=== PATIENT | male | born 1955 | race Two or more races ===

== ENCOUNTER 2019-11-18 06:09 | Inpatient (IN) | payer BC, OTHER ==
[~2019-11-18] VITALS: Ht 182.9 cm; Wt 63.5 kg
--- NOTE | 2019-11-18 06:26 | NUR ---
PT CAME TO ER BED BIB RA 12 C/O FEELING NAUSEOUS. PT STATES HE HAS BEEN HAVING TREMORS AND NAUSEA FOR ABOUT A WEEK. PT STATES THAT HIS LAST DRINK WAS YESTERDAY. PT STATES HE IS TRYING TO STAY SOBER. AAOX3, UNABLE TO VERIFY THE CURRENT MONTH AND YEAR. BREATHING EVENLY AND UNLABORED. CONNECTED TO MONITOR.
[2019-11-18] MEDS ORDERED: LORAZEPAM INJ 2 MG/ML VIAL IVP ONE (06:30)
[2019-11-18] MEDS ORDERED: LORAZEPAM INJ 2 MG/ML VIAL ONE ×2 (06:30→07:50)
--- NOTE | 2019-11-18 06:47 | NUR ---
PT WAS PICKED UP FOR
[2019-11-18 06:48] LABS: BASOPHILS # (AUTO) 0.2 /CMM (0.0-0.2); BASOPHILS % (AUTO) 1.6 % (0.0-2.0); EOSINOPHILS % (AUTO) 0.1 % (0.0-6.0); HEMATOCRIT 41 % (39-51); HEMOGLOBIN 13.7 g/dL (13.5-17.5); LYMPHOCYTES # (AUTO) 0.4 /CMM (0.8-4.8); MEAN CORPUSCULAR HGB CONC 33 g/dl (31.0-36.0); MEAN CORPUSCULAR VOLUME 106 fL (80-96); MONOCYTES # (AUTO) 0.7 /CMM (0.1-1.30); MONOCYTES % (AUTO) 4.7 % (2.0-12.0); NEUTROPHILS # (AUTO) 12.8 /CMM (1.8-8.9); NEUTROPHILS % (AUTO) 90.6 % (43.0-81.0); PLATELET COUNT (AUTO) 132 /CMM (150-450); RED BLOOD CELL COUNT(AUTO) 3.88 MIL/uL (4.5-6.0); WHITE BLOOD COUNT (AUTO) 14.1 K/uL (4.3-11.0)
[2019-11-18 07:06] LABS: CALCIUM, SERUM 9.6 mg/dL (8.5-10.1); CARBON DIOXIDE 18 mmol/L (21-32); CHLORIDE 95 mmol/L (98-107); CREATININE 2.1 mg/dL (0.6-1.3); GLUCOSE 107 mg/dL (74-106); POTASSIUM 3.4 mmol/L (3.5-5.1); SODIUM SERUM 144 mmol/L (136-145); UREA NITROGEN, BLOOD 12 mg/dL (7-18)
[2019-11-18 07:10] LABS: ALBUMIN 3.9 g/dL (3.4-5.0); ALKALINE PHOSPHATASE 95 U/L (46-116); BILIRUBIN,DIRECT 0.8 mg/dL (0.0-0.2); BILIRUBIN,TOTAL 2.5 mg/dL (0.2-1.0); TOTAL PROTEIN, SERUM 7.6 g/dL (6.4-8.2)
[2019-11-18 07:14] LABS: ACETAMINOPHEN 0 ug/ml (10-30); ALCOHOL, BLOOD < 3 mg/dL (0-0); SALICYLATE < 0.2 mg/dL (2.8-20.0)
--- NOTE | 2019-11-18 07:26 | NUR ---
ASSESSED PT ON BED AWAKE AA0X4, NOT IN RESPIRATORY DISTRESS, V/S STABLE, KEPT RESTED AND COMFORTABLE, AWAITING URINE SPECIMEN, WILL CONTINUE TO MONITOR.
[2019-11-18 07:29] LABS: ALANINE AMINOTRANSFERASE 57 U/L (12-78); ASPARTATE AMINOTRANSFERASE 122 U/L (15-37)
[2019-11-18] MEDS ORDERED: IV NS 0.9% 1,000 ML BAG IV ONE (07:30)
[2019-11-18] MEDS ORDERED: Thiamine 100 MG in IV D5W 50 ML IV SCH (07:30)
[2019-11-18 07:41] LABS: MAGNESIUM 1.6 mg/dL (1.8-2.4); PHOSPHORUS 5.3 mg/dL (2.5-4.9)
[2019-11-18] MEDS ORDERED: Thiamine 100 MG in IV D5W 50 ML IV ONE (07:51)
[2019-11-18] MEDS ORDERED: LORAZEPAM INJ 2 MG/ML VIAL IV ONE (08:00)
--- NOTE | 2019-11-18 08:33 | NUR ---
NURSING SUP GAVE TELE BED 321-2.
--- NOTE | 2019-11-18 08:35 | NUR ---
PAGED [facility].
[2019-11-18] MEDS ORDERED: IV D5/0.45 NACL 1,000 ML IV ONE (09:00)
[2019-11-18] MEDS ORDERED: Magnesium 1GM/D5W 100ML PREMIX 100 ML IV ONE (09:04)
[2019-11-18] MEDS ORDERED: PANT40TA4 PO (09:35)
[2019-11-18] MEDS ORDERED: FERR325T23 PO (09:35)
[2019-11-18] MEDS ORDERED: APIX5TAB PO (09:35)
--- NOTE | 2019-11-18 09:39 | NUR ---
REPORT GIVEN TO RAHEEM ARNOLD FOR GENEVIEVE, WITH ONGOING IVF.
[2019-11-18 10:35] VITALS: BP 131/89
[2019-11-18] MEDS ORDERED: LORAZEPAM INJ 2 MG/ML VIAL IV PRN (11:00)
[2019-11-18] MEDS ORDERED: ONDANSETRON HCL/PF 4 MG/2 ML VIAL IVP PRN (11:00)
[2019-11-18] MEDS ORDERED: Z GUARD REMEDY 2 OZ OINT TP PRN (11:00)
[2019-11-18] MEDS ORDERED: MAGNESIUM HYDROXIDE 30 ML UDC PO PRN (11:00)
[2019-11-18] MEDS ORDERED: MAG HYDROX/AL HYDROX/SIMETH 30 ML UDC PO PRN (11:00)
--- NOTE | 2019-11-18 11:45 | NUR ---
TELE ADMITTING NOTES PT ADMITTED TO UNIT AT 1030 VIA GURNEY ACCOMPANIED BY ER NURSE LINDA RAMIREZ AND PT'S ROOM MATE FARHAT. PT IS A/0 MX1-2. VERBALLY RESPONSIVE BUT CONFUSED. PT AND ROOM MATE ORIENTED TO STAFF AND ROOM. ON ROOM AIR, BREATHING EVEN AND UNLABORED. V/S TAKEN AND RECORDED. PHOTOS OF SKIN ISSUES TAKEN AND FILED IN CHART. IV ACCESS NOTED TO RAC G#18 INTACT AND PATENT WITH IVF OF D5 1/2 NS @ 125ML/HR INFUSING WELL, NO S/S OF INFILTRATIONS NOTED. PT PLACED ON TELEMONITORING WITH INITIAL READING SHOWING SINUS TACH WITH MULTIFOCAL, PVC AND BIGEMINY AND HR ON 100-120, PT DENIES CHEST PAIN. [employer] FLATBED DRIVER BROWNE MADE AWARE OF READING. SAFETY MEASURES INITIATED. BED PLACED ON LOWEST LOCKED POSITION WITH SR UP X2. CALL LIGHT WITHIN REACH. WILL CONTINUE TO CLOSELY MONITOR PT.
[2019-11-18] MEDS: FOLIC ACID 1 MG TABLET PO SCH (11:47)
--- NOTE | 2019-11-18 12:35 | NUR ---
RN NOTES PT VERBALLY RESPONSIVE, CONFUSED AND KEEPS REMOVING TELEMONITORING DEVICE DESPITE ENCOURAGING AND EXPLAINING RISKS. ROOMMATE AT BEDSIDE AND SAME ENCOURAGED PY TO HAVE IT ON BUT PT STILL REMOVING IT. JEWELRY SALES ASSOCIATE HOLLIE ON UNIT NOTIFIED AND STATED THAT HE WILL GO AND SEE PT. WILL CONTINUE TO MONITOR.
[2019-11-18 15:44] VITALS: BP 129/89
[2019-11-18] MEDS: LORAZEPAM INJ 2 MG/ML VIAL IV PRN ×3 (17:12→22:21)
--- NOTE | 2019-11-18 17:14 | NUR ---
RN NOTES PT VERY RESTLESS AND TRYING TO GET OUT OF BED. PRN ATIVAN 2MG/1ML IVP ADMINISTERED AT 1712. WILL CONTINUE TO MONITOR AND REASSESS PT.
--- NOTE | 2019-11-18 18:54 | NUR ---
BOLT SAWYER CLOSING NOTES PT AWAKE IN BED WITH ROOM MATE FARHAT AT BEDSIDE. A/0 X1-2. VERBALLY RESPONSIVE AND CONFUSED. PT REDIRECTED PRN AND EMOTIONAL SUPPORT GIVEN. ON ROOM AIR, BREATHING EVEN AND UNLABORED. IV SL ON LFA G#22 INTACT, PATENT AND FLUSHES WELL. PT ON CARDUIAC MONITOR BUT REFUSING/KEEP REMOVING TELE BOX, ROLL CLAMP OPERATOR BROWNE AWARE. PT DENIES CHEST PAIN. SAFETY MEASURES IN PLACE: BED IS IN LOWEST LOCKED POSITION WITH SR UP X2. CALL LIGHT WITHIN REACH. ALL NEEDS AND CARE PROVIDED WELL. WILL ENDORSE TO INSULATOR TESTER NURSE FOR GENEVIEVE.
--- NOTE | 2019-11-18 20:00 | NUR ---
REHAB SPECIALIST NOTES PT REFUSED TO HAVE TELE MONITOR ON. EXPLAINED TO PT IMPORTANCE OF TELE MONITOR IN HIS POC BUT PT STILL REFUSED. WILL CONTINUE TO MONITOR.
[2019-11-18 20:35] VITALS: BP 127/82
[2019-11-19] VITALS: BP 130/78
[2019-11-19 04:00] VITALS: BP 124/81
--- NOTE | 2019-11-19 06:12 | NUR ---
COMPUTER OPERATIONS SPECIALIST NOTES AWAKE & RESPONSIVE. NOT IN ANY DISTRESS. NO SOB NOTED. DENIES ANY PAIN OR DISCOMFORT AT THIS TIME. PT STILL REFUSING TELE MONITOR. WITH IV-HL PATENT & INTACT. MONITORED ACCORDINGLY WITH 1:1 SITTER AT BEDSIDE. CALL LIGHT WITHIN REACH. BED IN LOWEST POSITION. SR UP X 2 WITH BED ALARM ON FOR SAFETY. WILL ENDORSE TO NEXT SHIFT.
[2019-11-19 07:42] LABS: APPEARANCE,URINE CLOUDY (CLEAR); BILIRUBIN,URINE MODERATE (NEGATIVE); COLOR,URINE RED (YELLOW); KETONES,URINE 15 (NEGATIVE); LEUKOCYTE ESTERASE ,URINE NEGATIVE (NEGATIVE); NITRITE, URINE POSITIVE (NEGATIVE); PH,URINE 6.5 (5.0-8.0); PROTEIN,URINE 100 mg/dl (NEGATIVE); UGLUCOSE NEGATIVE (NEGATIVE)
--- NOTE | 2019-11-19 08:00 | NUR ---
MEDICAL COLLECTIONS OPENING NOTES RECEIVED PT IN BED, ASLEEP, BUTR AROUSABLE. SITTER BY BEDSIDE. VERBALLY RESPONSIVE BUTCONFUSED. NO CARDIAC OR RESP DISTRESS NOTED. ON BOW STAPLER WITH MULTIPLE FOCAL PVC BIGEMINY AND L BUNDLE BRANCH BLOCK. PT ON ROOM AIR, BREATHING EVEN AND UNLABORED. NO SOB NOTED. IV SL ON LFA G#22 INTACT, PATENT AND FLUSHES WELL. P. PT DENIES CHEST PAIN. SAFETY MEASURES IN PLACE: BED IS IN LOWEST POSITION AND LOCKED POSITION WITH SR UP X2. CALL LIGHT WITHIN REACH. ALL NEEDS AND CARE PROVIDED WELL.
[2019-11-19] MEDS: FERROUS SULFATE (325 MG) 325 MG/TAB TABLET PO SCH (08:11)
[2019-11-19] MEDS: THIAMINE HCL 100 MG TABLET PO SCH (08:11)
[2019-11-19] MEDS: FOLIC ACID 1 MG TABLET PO SCH (08:11)
[2019-11-19] MEDS: PANTOPRAZOLE 40 MG TABLET.DR PO SCH (08:11)
[2019-11-19 08:26] LABS: BACTERIA,URINE Few /HPF (None Seen); BLOOD, URINE 1+ Ery/uL (NEGATIVE); SQUAMOUS EPITHELIAL CELL,UR Few /HPF (None Seen); URINE AMORPHOUS URATE Many /HPF (None Seen); WBC,URINE 0-2 /HPF (0-3)
[2019-11-19] MEDS ORDERED: Magnesium 1GM/D5W 100ML PREMIX 100 ML IV SCH (09:00)
[2019-11-19] MEDS ORDERED: Thiamine 100 MG in IV D5W 50 ML IV SCH (11:00)
[2019-11-19] MEDS: LORAZEPAM INJ 2 MG/ML VIAL IV PRN ×3 (11:14→16:53)
--- NOTE | 2019-11-19 11:30 | NUR ---
ELEVATED HR TEJINDER BROWNE NOTIFIED RE: PT ELEVATED HR. AT TIMES HR JUMPS TO 130s to 140s. stat ekg ordered.
[2019-11-19 11:31] LABS: BASOPHILS % (AUTO) 0.2 % (0.0-2.0); EOSINOPHILS % (AUTO) 0.2 % (0.0-6.0); HEMATOCRIT 37 % (39-51); HEMOGLOBIN 12.6 g/dL (13.5-17.5); LYMPHOCYTES # (AUTO) 0.9 /CMM (0.8-4.8); LYMPHOCYTES % (AUTO) 10.6 % (20.0-44.0); MEAN CORPUSCULAR HGB CONC 34 g/dl (31.0-36.0); MEAN CORPUSCULAR VOLUME 105 fL (80-96); MONOCYTES # (AUTO) 0.6 /CMM (0.1-1.30); MONOCYTES % (AUTO) 7.5 % (2.0-12.0); NEUTROPHILS # (AUTO) 6.8 /CMM (1.8-8.9); NEUTROPHILS % (AUTO) 81.5 % (43.0-81.0); PLATELET COUNT (AUTO) 77 /CMM (150-450); RED BLOOD CELL COUNT(AUTO) 3.51 MIL/uL (4.5-6.0); WHITE BLOOD COUNT (AUTO) 8.3 K/uL (4.3-11.0)
[2019-11-19 11:49] LABS: CALCIUM, SERUM 8.3 mg/dL (8.5-10.1); CREATININE 1.4 mg/dL (0.6-1.3); MAGNESIUM 1.6 mg/dL (1.8-2.4); PHOSPHORUS 2.5 mg/dL (2.5-4.9)
[2019-11-19 11:55] LABS: POTASSIUM 2.5 mmol/L (3.5-5.1)
--- NOTE | 2019-11-19 11:55 | NUR ---
STAT EKG DONE STAT EKG DONE. TEJINDER BROWNE AWARE OF RESULTS. PER TEJINDER, THIS IS EXPECTED PT IS EXPERIENCING WITHDRAWALS FROM ETOH.
--- NOTE | 2019-11-19 12:00 | NUR ---
CRITICALLY LOW K+ LEVELS CRITICALLY LOW K+ LEVELS AT 2.5. TEJINDER BROWNE MADE AWARE. WITH NEW ORDERS FOR KCL 40MEQ.
[2019-11-19 12:01] LABS: THYROID STIMULATING HORMONE 2.395 uIU/mL (0.358-3.74)
[2019-11-19 13:05] LABS: LYMPHOCYTES % (MANUAL) 4 % (16-48); MONOCYTES % (MANUAL) 5 % (0-11.0); NEUTROPHILS % (MANUAL) 91 (42-76)
[2019-11-19] MEDS: POTASSIUM CL. PREMIX PERIPHER. 50 ML IV SCH ×4 (13:11→16:26)
[2019-11-19] MEDS: Magnesium 1GM/D5W 100ML PREMIX 100 ML IV SCH ×2 (14:08→15:02)
[2019-11-19] MEDS ORDERED: ACETAMINOPHEN 650 MG/20.3 ML UDC NG PRN ×2 (18:00)
--- NOTE | 2019-11-19 18:36 | NUR ---
GAS PLANT WORKER CLOSING NOTES PT IN BED, AWAKE, ALERT AND ORIENTED X 2. SITTER BY BEDSIDE. VERBALLY RESPONSIVE BUT CONFUSED. NO CARDIAC OR RESP DISTRESS NOTED. ON COMMERCIAL FRONT LOAD DRIVER WITH MULTIPLE FOCAL PVC BIGEMINY AND L BUNDLE BRANCH BLOCK. PT ON ROOM AIR, BREATHING EVEN AND UNLABORED. NO SOB NOTED. IV ACCESS NOTED ON R AC G20 AND L AC G20. NO S/S OF INFECTION AND INFILTRATIOON NOTED. MAGNESIUM AND K+ REPLACED TODAY. PT RECEIVED 2G OF MAGNESIUM AND 40MEQ OF K+ VIA IV. TOLEARTED WELL. PT DENIES CHEST PAIN. SAFETY MEASURES IN PLACE: BED IS IN LOWEST POSITION AND LOCKED POSITION WITH SR UP X2. CALL LIGHT WITHIN REACH. ALL NEEDS AND CARE PROVIDED WELL. WILL ENDORSE TO NEXT SHIFT
--- NOTE | 2019-11-19 19:35 | NUR ---
WHIZZER HAND OPENING NOTES PATIENT SLEEPING IN BED, EASY TO AWAKEN. A/OX2-3. SITTER AND FAMILY MEMBERS PRESENT AT THE BEDSIDE. ON ROOM AIR. NO S/S OF RESPIRATORY DISTRESS OR PAIN NOTED. TELE MONITOR READING MULTIFOCAL PVCS, HEART RATE 104. IV PRESENT ON LEFT AC SIZE 20 AND RIGHT AC, SIZE 20, BOTH INTACT & PATENT, HEP LOCKED. SAFETY MEASURES IN PLACE. BED LOCKED, ALARM ON, SIDE RAILS X2, CALL LIGHT WITHIN REACH. WILL CONTINUE TO MONITOR.
[2019-11-19 19:48] VITALS: BP 134/80
[2019-11-19 20:22] VITALS: BP 134/80
[2019-11-20] VITALS: BP 99/61
[2019-11-20 00:46] VITALS: BP 99/61
[2019-11-20 04:00] VITALS: BP 124/92
[2019-11-20 06:30] LABS: BASOPHILS % (AUTO) 0.3 % (0.0-2.0); EOSINOPHILS % (AUTO) 0.5 % (0.0-6.0); HEMATOCRIT 34 % (39-51); HEMOGLOBIN 11.8 g/dL (13.5-17.5); LYMPHOCYTES # (AUTO) 0.8 /CMM (0.8-4.8); LYMPHOCYTES % (AUTO) 11.6 % (20.0-44.0); MEAN CORPUSCULAR HGB CONC 35 g/dl (31.0-36.0); MEAN CORPUSCULAR VOLUME 105 fL (80-96); MONOCYTES # (AUTO) 0.7 /CMM (0.1-1.30); MONOCYTES % (AUTO) 10.2 % (2.0-12.0); NEUTROPHILS # (AUTO) 5.6 /CMM (1.8-8.9); NEUTROPHILS % (AUTO) 77.4 % (43.0-81.0); PLATELET COUNT (AUTO) 72 /CMM (150-450); RED BLOOD CELL COUNT(AUTO) 3.25 MIL/uL (4.5-6.0); WHITE BLOOD COUNT (AUTO) 7.3 K/uL (4.3-11.0)
[2019-11-20 06:38] LABS: CALCIUM, SERUM 8.4 mg/dL (8.5-10.1); CREATININE 0.8 mg/dL (0.6-1.3)
[2019-11-20 06:45] LABS: POTASSIUM 2.3 mmol/L (3.5-5.1)
--- NOTE | 2019-11-20 06:52 | NUR ---
TOP DYEING MACHINE LOADER NOTES CRITICAL LAB REPORTED. PATIENT'S POTASSIUM LEVEL 2.5. MD GONZÁLES PAGED THROUGH [facility] AT 2994. AWAITING RESPONSE.
--- NOTE | 2019-11-20 07:22 | NUR ---
SCIENCE CENTER DISPLAY BUILDER CLOSING NOTES PATIENT AWAKE IN BED. A/OX 3. SITTER PRESENT AT THE BEDSIDE. ON ROOM AIR. NO S/S OF RESPIRATORY DISTRESS OR PAIN NOTED. TELE MONITOR READING MULTIFOCAL PVCS, HEART RATE 99. IV PRESENT ON LEFT AC SIZE 20, INTACT & PATENT, HEP LOCKED. SAFETY MEASURES IN PLACE. BED LOCKED, ALARM ON, SIDE RAILS X2, CALL LIGHT WITHIN REACH. WILL ENDORSE TO DAY SHIFT NURSE CRITICAL LAB VALUE.
--- NOTE | 2019-11-20 08:00 | NUR ---
MACHINING DEPARTMENT SUPERVISOR OPENING NOTES RECEIVED PATIENT SLEEPING IN BED, EASY TO AWAKEN. A/OX2-3. SITTER AT THE BEDSIDE. ON ROOM AIR. NO S/S OF RESPIRATORY DISTRESS OR PAIN NOTED. TELE MONITOR SINUS TACHY WITH PVCS, HEART RATE 104. IV PRESENT ON LEFT AC SIZE 20 AND RIGHT AC, SIZE 20, BOTH INTACT & PATENT, SITTER BY [place]. SAFETY MEASURES IN PLACE. BED LOCKED, ALARM ON, SIDE RAILS X2, CALL LIGHT WITHIN REACH. WILL CONTINUE TO MONITOR.
[2019-11-20 08:23] LABS: EOSINOPHILS % (MANUAL) 2 % (0-4); LYMPHOCYTES % (MANUAL) 15 % (16-48); MONOCYTES % (MANUAL) 6 % (0-11.0); NEUTROPHILS % (MANUAL) 77 (42-76)
[2019-11-20] MEDS: PANTOPRAZOLE 40 MG TABLET.DR PO SCH (08:27)
[2019-11-20] MEDS: LORAZEPAM INJ 2 MG/ML VIAL IV PRN ×3 (08:27→14:08)
[2019-11-20] MEDS: THIAMINE HCL 100 MG TABLET PO SCH (08:27)
[2019-11-20] MEDS: FERROUS SULFATE (325 MG) 325 MG/TAB TABLET PO SCH (08:27)
[2019-11-20] MEDS: FOLIC ACID 1 MG TABLET PO SCH (08:27)
[2019-11-20] MEDS: POTASSIUM CL. PREMIX PERIPHER. 50 ML IV SCH ×8 (11:45→18:56)
--- NOTE | 2019-11-20 11:46 | NUR ---
WOUND CARE CONSULT: PT PRESENTS WITH DRY ABRASIONS AND BRUISES, PRESENT ON ADMISSION. PT IS INDEPENDENT WITH BED MOBILITY AND CONTINENT. SITTER AT BEDSIDE. WILL SEE PRN.
[2019-11-20] MEDS: IBUPROFEN 400 MG TABLET PO PRN ×2 (14:14→22:07)
--- NOTE | 2019-11-20 18:41 | NUR ---
ELDER COUNSELOR CLOSING NOTES PATIENT SLEEPING IN BED, EASY TO AWAKEN. A/OX2-3. SITTER AT THE BEDSIDE. ON ROOM AIR. NO S/S OF RESPIRATORY DISTRESS OR PAIN NOTED. TELE MONITOR SINUS TACHY WITH PVCS, HEART RATE 104. IV PRESENT ON LEFT FOREARM G 20 AND RIGHT FOREARM, G 20, BOTH INTACT & PATENT, SITTER BY [place]. POTASSIUM REPLACED TODAY WITH 80MEQ. SAFETY MEASURES IN PLACE. BED LOCKED, ALARM ON, SIDE RAILS X2, CALL LIGHT WITHIN REACH. WILL CONTINUE TO MONITOR.
--- NOTE | 2019-11-20 19:30 | NUR ---
IN HOME BABY SITTER A/O X 2, STABLE AND NOT IN DISTRESS, ASLEEP, ON CARDIAC MONITORING SR 88 HR WITH PAC, PVC. SEIZURE PRECAUTION. SAFETY MEASURES AT ALL TIMES. WILL CONTINUE TO MONITOR. 1:1 SITTER.
[2019-11-20 20:00] VITALS: BP 110/71
[2019-11-20 22:23] VITALS: BP 110/71
[2019-11-21] VITALS: BP 127/97
[2019-11-21 04:00] VITALS: BP 138/98
--- NOTE | 2019-11-21 06:14 | NUR ---
BUS PERSON NO SIGNIFICANT CHANGES, PT SLEPT WELL. SEIZURE PRECAUTION AT ALL TIMES. IV SITES NO S/S OF INFILTRATION, NO SEIZURE ACTIVITY STABLE AND NOT IN DISTRESS, 1:1 SITTER, NEEDS ATTENDED AND ANTICIPATED. KEPT CLEAN, DRY AND COMFORTABLE. AM CARE RENDERED. ON CARDIAC MONITORING. SR 85 HR WITH MULTIFOCAL PVC IN TELE MONITOR, SAFETY MEASURES AT ALL TIMES. WILL ENDORSE POC TO NEXT SHIFT.
[2019-11-21 06:55] LABS: BASOPHILS % (AUTO) 0.6 % (0.0-2.0); HEMATOCRIT 34 % (39-51); HEMOGLOBIN 11.7 g/dL (13.5-17.5); LYMPHOCYTES # (AUTO) 0.9 /CMM (0.8-4.8); LYMPHOCYTES % (AUTO) 14.2 % (20.0-44.0); MEAN CORPUSCULAR HGB CONC 35 g/dl (31.0-36.0); MEAN CORPUSCULAR VOLUME 106 fL (80-96); MONOCYTES % (AUTO) 15.2 % (2.0-12.0); NEUTROPHILS # (AUTO) 4.5 /CMM (1.8-8.9); PLATELET COUNT (AUTO) 93 /CMM (150-450); WHITE BLOOD COUNT (AUTO) 6.5 K/uL (4.3-11.0)
--- NOTE | 2019-11-21 07:15 | NUR ---
GLYCERINE PLANT OPERATOR OPENING NOTES RECEIVED PT IN BED, ASLEEP. EASILY AROUSED, A/O X3. PT HAS A SITTER LAST NIGHT AND NOTHING FOR THIS MORNING. PT TOLERATING RA, WITH NO ACUTE RESPIRATORY DISTRESS NOTED. ON TELEMONITORING WITH SR 85. PT DENIES ANY PAIN OR DISCOMFORT AT THIS TIME WELL. PT ALSO DENIES ANY CONCERNS OR QUESTION AT THIS TIME. PIVS TO LFA G20 AND RFA G20 SL, BOTH FLUSHED WITH NS, INTACT AND OPERATIONAL. PT COMFORTABLE IN BED AT THIS TIME. PT'S BED IN LOWEST, LOCKED POSITION WITH SRX3. CALL LIGHT KEPT WITHIN REACH. WILL CONTINUE PLAN OF CARE.
[2019-11-21 07:49] LABS: CALCIUM, SERUM 8.6 mg/dL (8.5-10.1); POTASSIUM 3.1 mmol/L (3.5-5.1)
[2019-11-21 07:50] LABS: CREATININE 0.9 mg/dL (0.6-1.3)
[2019-11-21 08:00] VITALS: BP 129/70
[2019-11-21] MEDS: FERROUS SULFATE (325 MG) 325 MG/TAB TABLET PO SCH (08:05)
[2019-11-21] MEDS: THIAMINE HCL 100 MG TABLET PO SCH (08:05)
[2019-11-21] MEDS: PANTOPRAZOLE 40 MG TABLET.DR PO SCH (08:05)
[2019-11-21] MEDS: FOLIC ACID 1 MG TABLET PO SCH (08:05)
--- NOTE | 2019-11-21 08:43 | NUR ---
COOKIE PADDER NOTES PT SEEN AND EVALUATED BY HOSPITALIST/CN/PHYSICS DEPARTMENT CHAIR, PT AWARE OF PLAN FOR DISCHARGE TODAY. PT ADVISED TO FOLLOW UP WITH PCP AND STAYING AWAY FROM THE BOTTLE OF ALCOHOL. PT AWARE AND UNDERSTOOD THE PLAN.
[2019-11-21] MEDS ORDERED: POTASSIUM CHLORIDE 20 MEQ TAB.PRT.SR PO ONE (09:30)
--- NOTE | 2019-11-21 10:37 | NUR ---
AND TAXI INSTRUCTOR BUS TROLLEY NOTES SPOKE TO FARHAT VIA PHONE REGARDING PT'S DISCHARGE. AND PREFERS AROUND AFTERNOON, AFTER LUNCH. PT MADE AWARE. WILL CONTINUE TO MONITOR PT.
--- NOTE | 2019-11-21 13:34 | NUR ---
PRIMARY COUNSELOR NOTES PT GOING HOME WITH [facility]. PT A/O X3-4, AWARE WITH THE PLAN. PT TOLERATING RA, WITH NO ACUTE RESPIRATORY DISTRESS NOTED. PT DENIES ANY PAIN OR DISCOMFORT AT THE TIME OF DISCHARGE. PT ALSO DENIES ANY CONCERNS OR QUESTION AT THE TIME OF DISCHARGE. PIVS TO LFA G20 AND RFA G20 SL, BOTH FLUSHED WITH NS, INTACT AND OPERATIONAL.REMOVED AND APPLIED PRESSURE DRESSING. ALL NEEDS AND CARE ATTENDED. DISCHARGE INSTRUCTIONS AND INVENTORY LIST WERE REVIEWED AND SIGNED BY PT. PT STATED HE UNDERSTOOD THE INSTRUCTIONS AND ALL BELONGINGS WERE WITH HIM. VS STABLE. SKIN ISSUES - PICTURES NOT TAKEN PER PT'S REFUSAL AND IN A HURRY TO GO HOME. RN EXPLAINED PROTOCOL, PT INSISTED TO REFUSE AND WANTS TO DRESS UP AND GET READY TO GO. NO PICTURES TAKEN AND FILED IN THE CHART. PT WHEELED OUT OF THE UNIT WITH WHEELCHAIR,PHLEBOTOMY MANAGER ESCORTED PT TO THE LOBBY WITH FARHAT/ROOMMATE. HOSPITALIST/CN/COIL TIER AND CN/KA AWARE OF PT'S DISCHARGE. PT LEFT THE UNIT AT 1330.
== END 2019-11-21 13:35 | disposition home health service (06) | DRG 896 ==
LOC: ER 06:11 → TELE 09:43
PROVIDERS: ADMIT Nurse Practitioner Acute Care; ATTEND Nurse Practitioner Acute Care
DX: F10.231 Alcohol dependence with withdrawal delirium (principal); G93.41 Metabolic encephalopathy; N17.0 Acute kidney failure with tubular necrosis; E87.2 Acidosis; K70.30 Alcoholic cirrhosis of liver without ascites; Y90.0 Blood alcohol level of less than 20 mg/100 ml; D69.59 Other secondary thrombocytopenia; D72.829 Elevated white blood cell count, unspecified; E83.42 Hypomagnesemia; E87.6 Hypokalemia; K21.9 Gastro-esophageal reflux disease without esophagitis; Z86.711 Personal history of pulmonary embolism; R74.0 Nonspecific elevation of levels of transaminase and lactic acid dehydrogenase [LDH]; E80.6 Other disorders of bilirubin metabolism
CPT/HCPCS: 36415; 70450-TC; 71045-TC; 76700-TC; 80048-TC; 80061-TC; 80076-TC; 81000-TC; 83735-TC; 84100-TC; 84132-TC; 84443-TC; 85025-TC; 85730-TC; 87081-TC; 87086-TC; 97116-TC; 97530-TC; A4349; G0378; G0480; J2060; J3411; J3475; J3480; J3490; J7030; J7040; J7060